=== PATIENT | male | born 1965 | race Caucasian/White ===

== ENCOUNTER 2021-08-08 07:45 | Outpatient (CLI) | payer OTHER, SELFPAY ==
--- NOTE | 2021-08-08 08:02 | XRR_ITS ---
PROCEDURE INFORMATION: Exam: XR Bilateral Knees, Standing AP Exam date and time: 08/08/2021 8:02 AM Age: 55 years old Clinical indication: Pain and condition or disease; Type not specified; Bilateral; Prior surgery; Surgery type: L knee arthroscopy; Patient HX: --c/o pain thoracic spine at upper and lower level for years. HX of osteoarthritis. C/O bilat knee pain-scarlet left. C/O bilat shoulders-scarlet left. ; Additional info: Pain/hx of arthritis TECHNIQUE: Imaging protocol: XR of the bilateral knees. Views: Standing AP. COMPARISON: No relevant prior studies available. FINDINGS: Bones/joints: Normal. Soft tissues: Normal. XR/[place] [id number] IMPRESSION: No acute findings. Radiation Dose CTDIVOL = (mGy): DLP = (mGy-cm)
--- NOTE | 2021-08-08 08:02 | XRR_ITS ---
PROCEDURE INFORMATION: Exam: XR Bilateral Hips Exam date and time: 08/08/2021 8:02 AM Age: 55 years old Clinical indication: Pain and condition or disease; Other: Arthritis, ; hip pain and pelvic pain; Bilateral; Patient HX: --c/o pain thoracic spine at upper and lower level for years. HX of osteoarthritis. C/O bilat knee pain-scarlet left. C/O bilat shoulders-scarlet left. ; Additional info: Pain/hx of arthritis, to include the pelvis TECHNIQUE: Imaging protocol: XR bilateral hips. Views: 2 views of hips with pelvis when performed. COMPARISON: No relevant prior studies available. FINDINGS: Bones/joints: No fracture or dislocation. There is mild degenerative changes of the hip joints, manifested mainly by small periarticular osteophytes. Mild degenerative changes of the included lower lumbar spine is also seen. Soft tissues: Unremarkable. XR/XR hip BI m 5V wo/w pel* [id number] IMPRESSION: Mild degenerative changes of the hip joints. Radiation Dose CTDIVOL = (mGy): DLP = (mGy-cm)
--- NOTE | 2021-08-08 08:02 | XRR_ITS ---
PROCEDURE INFORMATION: Exam: XR Left Shoulder Exam date and time: 08/08/2021 8:02 AM Age: 55 years old Clinical indication: Pain and condition or disease; Type not specified; Bilateral; Patient HX: --c/o pain thoracic spine at upper and lower level for years. HX of osteoarthritis. C/O bilat knee pain-scarlet left. C/O bilat shoulders-scarlet left. ; Additional info: Pain/hx of arthritis TECHNIQUE: Imaging protocol: XR Left shoulder. Views: 2 or more views. COMPARISON: No relevant prior studies available. FINDINGS: Bones/joints: The left glenohumeral joint is well maintained. There is mild degenerative changes of the left acromioclavicular joint, manifested by small periarticular osteophytes. No acute fracture or dislocation. Soft tissues: Normal. XR/XR shoulder LT min 2V* [id number] IMPRESSION: Mild degenerative changes of the left acromioclavicular joint. Radiation Dose CTDIVOL = (mGy): DLP = (mGy-cm)
--- NOTE | 2021-08-08 08:02 | XRR_ITS ---
PROCEDURE INFORMATION: Exam: XR Right Shoulder Exam date and time: 08/08/2021 8:02 AM Age: 55 years old Clinical indication: Pain and condition or disease; Arthritis; Type not specified; Shoulder; Bilateral; Additional info: Pain/hx of arthritis TECHNIQUE: Imaging protocol: XR Right shoulder. Views: 2 or more views. COMPARISON: No relevant prior studies available. FINDINGS: Bones/joints: The glenohumeral joint is well maintained. There is mild degenerative changes of the right acromioclavicular joint, manifested by joint space narrowing and small periarticular osteophytes. Old healed fracture deformity of the right mid clavicle noted. No acute fracture or dislocation identified. Soft tissues: Normal. XR/XR shoulder RT min 2V* [id number] IMPRESSION: Mild degenerative changes of the right acromioclavicular joint. Radiation Dose CTDIVOL = (mGy): DLP = (mGy-cm)
--- NOTE | 2021-08-08 08:02 | XRR_ITS ---
PROCEDURE INFORMATION: Exam: XR Cervical Spine Exam date and time: 08/08/2021 8:02 AM Age: 55 years old Clinical indication: Pain and condition or disease; Neck pain; Patient HX: --c/o pain thoracic spine at upper and lower level for years. HX of osteoarthritis. C/O bilat knee pain-scarlet left. C/O bilat shoulders-scarlet left. ; Additional info: Pain HX of arthritis TECHNIQUE: Imaging protocol: XR of the cervical spine. Views: 4 or 5 views. COMPARISON: No relevant prior studies available. FINDINGS: Bones/joints: Trace levocurvature of the cervical spine is present. The normal cervical lordosis is maintained, without listhesis. No fracture identified. Vertebral body heights are well maintained. There is multilevel degenerative changes, manifested by intervertebral disc space narrowing, endplate osteophytes and facet joint arthrosis, resulting in mild neural foraminal narrowing at C4-C5 on the right, and C6-C7 on the left. Soft tissues: Unremarkable. XR/XR cervical spine 4-5V [id number] IMPRESSION: Mild degenerative changes of the cervical spine. Radiation Dose CTDIVOL = (mGy): DLP = (mGy-cm)
--- NOTE | 2021-08-08 08:02 | XRR_ITS ---
PROCEDURE INFORMATION: Exam: XR Lumbosacral Spine Exam date and time: 08/08/2021 8:02 AM Age: 55 years old Clinical indication: Pain and condition or disease; Other: Arthritis, ; low back pain; Additional info: Pain HX of arthritis TECHNIQUE: Imaging protocol: XR of the lumbosacral spine. Views: 2 or 3 views. COMPARISON: No relevant prior studies available. FINDINGS: Bones/joints: No spine curvature seen. The normal lumbar lordosis is maintained, with grade 1 retrolisthesis of L2 and L3. Vertebral body heights are well preserved. No fracture identified. There is multilevel degenerative changes, manifested by intervertebral disc space narrowing, endplate osteophytes and facet joint arthrosis. Soft tissues: Unremarkable. XR/XR lumbar spine 2-3V* [id number] IMPRESSION: Degenerative changes with grade 1 retrolisthesis of L2 and L3. Radiation Dose CTDIVOL = (mGy): DLP = (mGy-cm)
--- NOTE | 2021-08-08 08:02 | XRR_ITS ---
PROCEDURE INFORMATION: Exam: XR Thoracic Spine Exam date and time: 08/08/2021 8:02 AM Age: 55 years old Clinical indication: Pain and condition or disease; Pain in thoracic spine; Patient HX: --c/o pain thoracic spine at upper and lower level for years. HX of osteoarthritis. C/O bilat knee pain-scarlet left. C/O bilat shoulders-scarlet left. ; Additional info: Pain/hx of arthritis TECHNIQUE: Imaging protocol: XR of the thoracic spine. Views: 3 views. COMPARISON: CR XR cervical spine 4-5V [id number] 08/08/2021 8:46 AM FINDINGS: Bones/joints: No spine curvature seen. The normal thoracic kyphosis is maintained, without listhesis. Vertebral body heights are well maintained. No fracture identified. There is multilevel degenerative changes, manifested by intervertebral disc space narrowing, endplate osteophytes and facet joint arthrosis. Soft tissues: Unremarkable. XR/XR thoracic spine 2V [id number] IMPRESSION: 1. Mild degenerative changes of the thoracic spine. 2. No acute injury. Radiation Dose CTDIVOL = (mGy): DLP = (mGy-cm)
== END 2021-08-08 07:46 | disposition home or self-care (01) ==
LOC: RADWPI 07:49 → RAD 07:49
PROVIDERS: Visit Provider Nurse Practitioner Primary Care
DX: M54.6 Pain in thoracic spine (principal); M25.561 Pain in right knee; M25.562 Pain in left knee; M25.512 Pain in left shoulder; M25.511 Pain in right shoulder; M54.50 Low back pain, unspecified; R10.2 Pelvic and perineal pain; M54.2 Cervicalgia
CPT/HCPCS: 72050; 72070; 72100; 73030; 73523; 73565